=== PATIENT | male | born 1950 | race Caucasian/White ===

== ENCOUNTER 2024-07-02 14:40 | Outpatient (AMB) | payer MEDICARE, SELFPAY ==
--- NOTE | 2024-07-02 14:43 | A.OFFVIS_ITS ---
Intake Visit Reasons: Urinary incontinence (gynecology) Intake Note: New Patient presents for initial visit for incontinence Urology Medications: none Blood Thinner: none PVR: 21ml's Doughnut Dough Mixer Required: No Accompanied by: Self / Same As Patient Allergies No Known Allergies Allergy (Verified 07/02/24 15:27) Medication List - Last Reconciled 07/02/24 by Ceci Liz, WELL REACTIVATOR OPERATOR- aripiprazole 20 mg PO DAILY benztropine 1 mg PO BID carbidopa-levodopa 25-100 mg tabs PO clotrimazole-betamethasone 1-0.05 % appl topical clozapine 25 mg PO BEDTIME omeprazole 20 mg PO DAILY propranolol mg PO simvastatin 20 mg PO BEDTIME HPI Comments Details: Ricky is a very pleasant 74-year-old male patient of Dr. Adarsh Stiles. He has a past medical history of Parkinson's, schizophrenia, mixed hyperlipidemia, and type 2 diabetes. He presents to the office today as a new patient for ongoing lower urinary tract symptoms. In discussion with the patient today he reports having followed up with his PCP and discussing ongoing issues with urinary urgency and frequency as well as episodes of stress incontinence at which time referral was made for urology for further assessment evaluation. When asked he reports symptoms have been present for quite some time. In office urinalysis results reviewed with the patient today. PVR 21 mL. We discussed at length potential causes of lower urinary tract symptoms patient is experiencing. He denies hematuria, dysuria, foul smelling urine, changes to urinary stream, f lank pain, fever, and or chills. We discussed importance of timed voiding and pelvic floor exercises. Will obtain retroperitoneal ultrasound and PSA for further assessment evaluation. MARIANA offered however deferred. He otherwise offers no other issues or concerns at this time. [facility] Medical History Mixed hyperlipidemia Schizo-affective schizophrenia Achalasia of esophagus Extrapyramidal movement disorder Parkinsons disease Type 2 diabetes mellitus without complications Review of Systems Eyes Reports no additional complaints ENT Reports no additional complaints Card Reports as per HPI Resp Reports no additional complaints GI Reports as per HPI Reports as per HPI Musc Reports as per HPI Neuro Reports as per HPI Psych Reports as per HPI Endo Reports as per HPI Tyler/Lymph Reports no additional complaints Aller/Immun Reports no additional complaints Physical Exam Const General: cooperative, healthy appearing, comfortable, no acute distress, well developed, alert and awake Orientation/consciousness: patient oriented x3 Limitations: ambulation with walker HEENT Head: Yes normal to inspection, Yes normocephalic and Yes atraumatic Ears: hearing grossly normal bilaterally Eyes General: appearance normal, both eyes and all related structures Neck Neck: Yes normal visual inspection and Yes trachea midline Chest Chest palpation & inspection: normal inspection of the chest Resp Effort & Inspection: normal respiratory effort and able to speak in complete sentences Cardio Rate: regular rate GI Inspection: Yes normal to inspection General: Yes no CVA tenderness Back/Spine/Pelvis Back: no CVA tenderness Skin General skin exam: no rashes or lesions noted Neuro General: patient oriented x3 Extrem General: Yes normal to inspection Psych Appearance: grossly normal and well kempt Mental Status: mental status grossly normal Speech and movement: Normal speech and movement present and Clear speech present Affect: normal affect Attitude: cooperative Thought process: Normal thought process present Thought content: Normal thought content present Insight: Fair insight present (Psych) Judgement: Fair judgement present (Psych) Office Procedures Post Void Residual Post Residual Void Post Void Residual (PVR): 21 [id number] Void Residual by ultrasound Results AMB Urinalysis, Automated UA Leukoctes 0 Saba/uL Last Edit by Bottle LolaDestineer on 07/02/24 15:09 UA Nitrite Last Edit by [employer] Groupmercedes Wilkinson on 07/02/24 15:09 UA Urobilinogen 0.2 mg/dL Last Edit by Bottle LolaDestineer on 07/02/24 15:09 UA Protein 15 mg/dL Last Edit by Bottle LolaDestineer on 07/02/24 15:09 UA pH 6.0 Last Edit by [employer] on 07/02/24 15:09 UA Blood 0 Franco/uL Last Edit by [employer] on 07/02/24 15:09 UA Specific [place] 1.030 Last Edit by Sc[employer] on 07/02/24 15:09 UA Ketone Positive Last Edit by Sc[employer] on 07/02/24 15:09 UA Bilirubin 0 mg/dL Last Edit by Bottle LolaDestineer on 07/02/24 15:09 UA Glucose 0 mg/dL Last Edit by Scuttledog on 07/02/24 15:09 Results Reviewed Results Reviewed: Laboratory Last Values Urine pH (Auto) 6.0 07/02/24 14:58 Specific [place] (Auto) 1.030 07/02/24 14:58 Urine Protein (Auto) 15 mg/dL 07/02/24 14:58 Glucose (UA)(Auto) 0 mg/dL 07/02/24 14:58 Urine Ketones (Auto) Positive 07/02/24 14:58 Urine Blood (Auto) 0 Franco/uL 07/02/24 14:58 Urine Bilirubin (Auto) 0 mg/dL 07/02/24 14:58 Urine Urobilinogen (Auto) 0.2 mg/dL 07/02/24 14:58 Leukocyte Esterase (Auto) 0 Saba/uL 07/02/24 14:58 Assessment & Plan Assessment & Plan (1) Lower urinary tract symptoms: Code(s): R39.9 - Unspecified symptoms and signs involving the genitourinary system Category: Medical (2) Urinary urgency: Code(s): R39.15 - Urgency of urination Category: Medical (3) Urinary frequency: Code(s): R35.0 - Frequency of micturition Category: Medical (4) Mixed incontinence urge and stress: Code(s): N39.46 - Mixed incontinence Category: Medical Plan In office urinalysis results reviewed with the patient today; as noted above. PVR 21 mL. Discussed at length potential causes for lower urinary tract symptoms patient is experiencing. We discussed pelvic floor exercises as well as timed voiding. Discussed at length importance of management of diabetes for improvement lower urinary tract symptoms as well as overall health and well-being. Start Flomax as discussed and prescribed. Discussed possible near future in office cystoscopy and or urodynamics for further assessment evaluation. Will obtain retroperitoneal ultrasound for further assessment evaluation. Will obtain PSA for further assessment evaluation. MARIANA offered however deferred. Follow-up in 1-3 months with imaging and lab to be completed prior; or sooner with any issues, concerns, and or questions. Orders: Orders AMB Urinalysis Automated Today Z13.9 - Encounter for screening, unspecified AMB Post Void Residual by ultrasound Today Z13.9 - Encounter for screening, unspecified Prostate Specific Antigen Today N40.0 - Benign prostatic hyperplasia without lower urinary tract symptoms US retroperitoneal comp Today R39.9 - Unspecified symptoms and signs involving the genitourinary system Medications: New tamsulosin (Flomax) 0.4 mg PO ONCE 30 days 30 caps 2RF Patient Instructions: The patient had an opportunity to ask questions regarding the treatment plan. All questions were answered. Physical exam, labs, and imaging were discussed and reviewed in detail. As well as risks, benefits, and discussion of treatment choices. No major barriers to understanding were identified. The patient expressed understanding and agreement with the above treatment plan. The patient was made aware they should contact our office by phone for worsening of their current condition, the appearance of new symptoms, or with any questions or concerns. Compliance is encouraged with any medications and follow up testing that is ordered. It is a privilege to be allowed the opportunity to participate in? your urological care.? Again, if you have any questions or conc erns If you have any questions or concerns please do not hesitate to contact me. The office is [phone]. This note is constructed using voice recognition software. While every effort has been made to ensure accuracy morgue technician errors may have been included. Yours sincerely, LEIDY Fritz Coding Level of Care Code New Pt Level 4 (08218) Diagnoses Lower urinary tract symptoms R39.9 Urinary urgency R39.15 Urinary frequency R35.0 Mixed incontinence urge and stress N39.46 CPT Codes Post Residual Void - PVR CPT Code: 90076-[id number] Void Residual by ultrasound ([id number])
== END 2024-07-02 15:30 | disposition home or self-care (01) ==
PROVIDERS: PCP Family Medicine; Visit Provider Nurse Practitioner Family
DX: R39.9 Unspecified symptoms and signs involving the genitourinary system (principal); R35.0 Frequency of micturition; N39.46 Mixed incontinence; Z13.9 Encounter for screening, unspecified
CPT/HCPCS: 99204

== ENCOUNTER → 2024-07-02 14:40 | Outpatient (BNVA) | payer MEDICARE, SELFPAY | PROVIDERS: PCP Family Medicine; Visit Provider Nurse Practitioner Family | DX: N39.46 Mixed incontinence (principal); R35.0 Frequency of micturition; N40.0 Benign prostatic hyperplasia without lower urinary tract symptoms; E78.2 Mixed hyperlipidemia | CPT/HCPCS: 51798; 81003; 99202 ==